=== PATIENT | male | born 1960 | race African-American/Black ===

== ENCOUNTER 2018-08-22 10:27 | Day surgery (SDC) | payer OTHER ==
[~2018-08-22] VITALS: Ht 175.3 cm; Wt 77.6 kg
[~2018-08-22 10:27] MED LIST: DOCU100C16 PO; LR 1,000 ML IV ONE
[2018-08-22] MEDS ORDERED: BACITRACIN PWD 50,000 UNITS VIAL As Ordered ONE (11:31)
[2018-08-22] MEDS ORDERED: LIDOCAINE 2% MDV 20 ML VIAL As Ordered ONE (11:31)
[2018-08-22] MEDS ORDERED: BUPIVACAINE HCL 0.5% 30 ML VIAL As Ordered ONE (11:31)
[2018-08-22] MEDS ORDERED: dexameTHASONE 4 MG/ML 1ML VIAL (J1100) As Ordered ONE ×2 (11:31→11:51)
[2018-08-22] MEDS ORDERED: NEOSPORIN GU IRRIG 20 ML VIAL As Ordered ONE (11:31)
[2018-08-22] MEDS ORDERED: PROPOFOL 200 MG/20 ML VIAL As Ordered ONE (11:51)
[2018-08-22] MEDS ORDERED: KETOROLAC 60 MG/2 ML VIAL (J1885) As Ordered ONE (11:51)
[2018-08-22] MEDS ORDERED: ONDANSETRON 4MG/2ML VIAL (J2405) As Ordered ONE (11:51)
[2018-08-22] MEDS ORDERED: fentaNYL 100 MCG/2 ML INJECTION (J3010) As Ordered ONE (11:51)
[2018-08-22] MEDS ORDERED: LIDOCAINE 2% INJ 100 MG/5 ML SDV (FOR ANES.) As Ordered ONE (11:51)
[2018-08-22] MEDS ORDERED: MIDAZOLAM INJ 2 MG/2 ML VIAL (J2250) As Ordered ONE (11:51)
[2018-08-22] MEDS ORDERED: ePHEDrine SULFATE 25 MG/5 ML(5MG/ML) SYRINGE As Ordered ONE (13:22)
[2018-08-22] MEDS ORDERED: PERCOCET 5MG/325MG TAB PO ONE (13:45)
[2018-08-22 14:30] VITALS: BP 127/73
--- NOTE | 2018-08-22 15:19 | REP ---
HISTORY: Status post bunionectomy. COMPARISON: None. An internal fixation screw is seen affixing the derotational osteotomy at the first metatarsal. There is K-wire fixation fusing the PIP and DIP of the second digit with postoperative changes seen involving the distal aspect of the proximal phalanx of the second digit. There is expected postoperative soft tissue swelling. IMPRESSION: Postoperative changes as described above. Electronically Signed by Chris Mejia DO 08/22/2018 03:23 P
--- NOTE | 2018-08-23 11:11 | RO ---
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 Hammertoe deformity 2nd toe, left foot. POSTPROCEDURE DIAGNOSIS: PROCEDURES PERFORMED: 1. Maikel bunionectomy internal screw fixation, left foot. 2. Proximal interphalangeal joint fusion, 2nd toe left foot. 3. Capsulotomy 2nd metatarsophalangeal joint, left foot. SURGEON: Keshawn Alejandre DPM ELIGIBILITY AND OCCUPANCY INTERVIEWER: None ANESTHESIA: Local, monitored anesthesia care (MAC). IRRIGATION: Dilute bacitracin, neomycin, and polymyxin B solution. HEMOSTASIS: None, since patient is positive for sickle cell trait. HARDWARE UTILIZED: Arthrex headless compression screw 3.0 x 22 mm and a 0.045 K-wire. ESTIMATED BLOOD LOSS: 30 mL. DESCRIPTION OF PROCEDURE: On 08/22/2018, this 57-year-old black male was taken from his hospital room to the operating room and placed on the operating room table in a supine position. Following the induction of intravenous (IV) sedation, the following procedure was performed: Maikel bunionectomy internal screw fixation, 3.0 mm x 22 mm x 1, left foot. Attention was directed to the patient's left foot. There was noted to be a hallux valgus deformity. At this time, a 6 cm incision was placed over the 1st metatarsophalangeal joint medial to the extensor tendon. The incision was deepened through subcutaneous tissue and all coursing venous tributaries were identified, underscored, clamped, cut, ligated, and electrocoagulated as necessary. A linear capsulotomy was then performed in the same plane as the original skin incision. The capsule and periosteal structures were then dissected free in one continuous layer dorsally, medially, and laterally, thus creating a capsule and periosteal type envelope. This delivered into view the hypertrophied medial eminence of the 1st metatarsal, which was osteotomized from distal to proximal through and through. Attention was then directed into the 1st intermetatarsal space where dissection was carried down to the level of the fibular sesamoid, and the fibular sesamoid was released laterally, proximally, and medially. A lateral capsulotomy was also performed. This released the contracture on the lateral surface of the 1st metatarsal. The V-shaped osteotomy was performed and the long plantar dorsal wing and the distal metaphysis of 1st metatarsal and the capital fragment was transposed 35-40% of the width of the shaft of the 1st metatarsal, fixated with a 3.0 x 22 mm Arthrex headless compression screw. The screw did not penetrate the inferior cartilage on direct visualization. Redundant cortical spike was osteotomized from dorsal to plantar, through and through. Medial surface was rasped to a smooth contour. The wound was flushed with copious amounts of dilute bacitracin, neomycin, and polymyxin B solution. Attention was then directed to the 2nd toe, where the following procedure was performed: PROXIMAL INTERPHALANGEAL JOINT FUSION, 2ND TOE OF LEFT FOOT: Attention was directed to the patient's 2nd toe, where a 2 cm incision was placed over the proximal interphalangeal joint. The incision was deepened through subcutaneous tissues and all coursing venous tributaries were identified, underscored, clamped, cut, ligated, and electrocoagulated as necessary. A transverse tenotomy and capsulotomy were performed at the proximal interphalangeal joint. The extensor tendon was then released proximally releasing the extensor expansion and hawk. The medial and lateral collateral ligaments were sharply dissected free from the head of the proximal phalanx, and utilizing a sagittal saw, an osteotomy was performed at the anatomical neck of the proximal phalanx from dorsal to plantar, medial to lateral, through and through. The cartilage at the base of the middle phalanx was similarly osteotomized from dorsal to plantar, through and through, and extirpated from the wound. Utilizing a 0.045 K-wire, the wire was driven through the middle and distal phalanxes was then retrograded into the proximal phalanx utilizing fluoroscopy for positioning of the wire. Still noted to be a dorsal contracture at the metatarsophalangeal joint, therefore, the following procedure was performed: DORSAL CAPSULOTOMY WITH RELEASE OF THE PLANTAR PLATE, 2ND METATARSOPHALANGEAL JOINT, LEFT FOOT: A 1 cm incision was placed transversely, dorsally over the proximal interphalangeal joint. The dissection was then carried down to the extensor tendon, which was freed, and the extensor tendon was pulled out of the operative site to prevent injury while performing the transverse capsulotomy. Utilizing a 15-blade, a capsulotomy was performed dorsally over the 2nd metatarsophalangeal joint and a metatarsal elevator was placed to release the plantar plate releasing the contracture on the 2nd metatarsophalangeal joint. The wound was flushed with copious amounts of dilute bacitracin, neomycin, and polymyxin B solution. The extensor tendon was then delivered back into the more distal wound, and utilizing a braided #4-0 nylon loop suture, a four-stranded Zurita repair was performed on the extensor tendon. The skin wounds coapted and maintained with #4-0 Prolene with a simple interrupted and horizontal mattress-type fashion. Attention was directed towards bandaging, where prior to bandaging, 4 mg of dexamethasone sodium phosphate was instilled proximal to surgical site, and attention was directed towards bandaging consisting of Adaptic, 4 x 4's, 4 x 4 splints, Ruy, Kerlix, and Coban. Patient, having apparently tolerated surgical procedure well, was taken from the operating room (OR) to the recovery room. Further monitoring by the anesthesia department. Postoperative instructions given upon discharge. MACY
== END 2018-08-22 15:00 | disposition home or self-care (01) ==
LOC: M SDC 10:27
PROVIDERS: ATTEND Podiatrist
DX: M20.12 Hallux valgus (acquired), left foot (principal); M20.42 Other hammer toe(s) (acquired), left foot; M79.672 Pain in left foot; Z79.899 Other long term (current) drug therapy; F17.210 Nicotine dependence, cigarettes, uncomplicated
CPT/HCPCS: 28270; 28285; 28296; 73630; 88300; 97116; C1713; J0690; J1100; J2250; J2405; J3010